=== PATIENT | female | born 1955 | race Caucasian/White ===

== ENCOUNTER 2023-12-19 05:00 | Emergency (ER) | payer MEDICARE, OTHER, SELFPAY ==
[2023-12-19 05:03] VITALS: BP 152/96
[2023-12-19 05:23] VITALS: BMI 24.3
[2023-12-19 05:55] LABS: % Basophils 0.6 % (0-2); % Eosinophils 2.8 % (0-6); % Immature Granulocytes 0.2 % (0-0.5); % Lymphocytes 25.6 % (20.5-51.1); % Neutrophils 67.8 % (42.2-75.2); Absolute Eosinophils 0.1 10^3/uL (0-0.7); Absolute Lymphocytes 1.2 10^3/uL (1.2-3.4); Absolute Monocytes 0.1 10^3/uL (0.1-0.6); Absolute Neutrophils 3.1 10^3/uL (1.4-6.5); Hematocrit 41.7 % (37.0-47.0); Hemoglobin 15.1 g/dL (12.0-16.0); Mean Corp Hgb Conc. 36.2 g/dL (33.0-37.0); Mean Corpuscular Hgb 31.5 pg (27.0-31.0); Mean Corpuscular Volume 87.1 fL (81.0-99.0); Mean Platelet Volume 9.8 fL (7.4-10.4); Nucleated Red Blood Cells % 0 %; Platelet Count 177 10^3/uL (130-400); Red Blood Cell Count 4.79 10^6/uL (4.20-5.40); Red Cell Dist. Width 11.7 % (11.5-14.5); White Blood Cell Count 4.6 10^3/uL (4.8-10.8)
[2023-12-19 06:00] VITALS: BP 135/64
[2023-12-19 06:08] LABS: ALT (SGPT) 30 U/L (0-35); AST (SGOT) 31 U/L (14-36); Albumin 4.2 g/dl (3.5-5.0); Alkaline Phosphatase 98 U/L (38-126); Blood Urea Nitrogen 17 mg/dl (7-17); Calcium 9.2 mg/dl (8.4-10.2); Carbon Dioxide 26 mmol/L (22-30); Chloride 103 mmol/L (98-107); Estimated Creatinine Clearance 40 ml/min; Glucose 87 mg/dl (70-99); Potassium 3.3 mmol/L (3.5-5.1); Sodium 140 mmol/L (135-145); Total Protein 6.4 g/dl (6.3-8.2); eGFR > 60.00
[2023-12-19 06:19] LABS: NT-proBNP 273 pg/ml; Troponin I < 0.012 ng/ml
[2023-12-19 07:16] VITALS: BP 124/52
--- NOTE | 2023-12-19 07:29 | ED.GENMED ---
History of Present Illness
General
Chief Complaint: Breathing Problem
Source: patient and spouse
Exam Limitations: none
Time Seen by Provider: 12/19/23 06:04
Nursing documentation reviewed up to this point in time: agreed with
Travel History
Have you had any contact with someone who has COVID-19?: No
Do you have any symptoms of coronavirus? Fever > 100 degrees, chills, cough, shortness of breath, sore throat, loss of taste or smell, muscle aches, or headache?: No
History of Present Illness
History of Present Illness:
68-year-old female with a past medical history of hypertension who presents to the emergency department for evaluation of abdominal pain associated with nausea, vomiting, diarrhea; she also had an episode of chest/scapular pain this morning which
seems to have resolved. Patient reports that she started feeling unwell on he reports that she had 'queasy' feeling and some vague abdominal discomfort. She says that she woke up morning feeling a bit better and she thought
that perhaps it was minor illness but Tuesday symptoms returned and she has had essentially constant symptoms since then. She said she did have an episode of vomiting associate with this queasiness. She says that last night she was at her
daughter's house for Mother's Day and had to leave early because she was having abdominal discomfort. She says that when she got home she started to have profuse nonbloody diarrhea. In the middle night last night she says she woke up with some mid
back pain associate with some shortness of breath�this lasted for few hours until arrival to the emergency room. She says that this symptom has resolved. She has not had any fevers or chills. She denies any other complaints. She has a prior
history of a but no other abdominal surgeries she says.
Review of Systems
Review of Systems
All Other Systems: ROS reviewed and negative except as documented in HPI and ROS
Constitutional: Denies fever or chills
EENT: Denies sore throat or runny nose
Respiratory: Reports trouble breathing; Denies cough
Cardiac: Reports chest pain; Denies palpitations
ABD/GI: Reports abdominal pain, nausea, vomiting and diarrhea; Denies bloody stools
: Denies flank pain
Musculoskeletal: Reports back pain; Denies neck pain
Neurological: Denies headache
Phy Exam
Physical Exam
Physical Exam:
General: Awake, alert, oriented x3; no acute distress
Head: Normocephalic, atraumatic
Eyes: Conjunctiva normal, sclera anicteric
Throat: Airway intact, handling secretions
Neck: Trachea midline, supple without meningismus
Lungs: Clear to auscultation bilaterally, no wheezing, rales, rhonchi
Heart: Regular rate and rhythm, no murmurs, gallops, or rubs
Abd: Soft, non distended, tender to palpation in the epigastrium with some voluntary guarding
Neuro: Cranial nerves grossly intact, speech fluid
Skin: no rash
Extremities: No edema in extremities, equal pulses in all extremities
Scores
Heart Failure Risk
Heart Failure Risk Score: Not Applicable
Heart Score for Chest Pain Patients
STEMI patient?: Not applicable
Withdrawal Assessment of Alcohol
Withdrawal Assessment Completed?: Not applicable
Course
Orders/Labs/Results
Orders:
Orders
12/19/23 05:24
Electrocardiogram (*1) Urgent
Reason for Study: Other
Other Reason for Exam: Respiratory Distress
Cardiac Monitoring- Treatment ONCE
EKG- Treatment ONCE
IV Insert/Care/Rem.- Treatment PRN
CR Chest - 2 Views Urgent
Comment:
Reason For Exam: respiratory distress
O2 Therapy [RESP] Urgent
Titrate/Wean O2 to maintain O2 sat greater than (%): 93
Special Instructions: TO MAINTAIN CONTINUOUS O2 SATS >/= 93%
Pulse Ox/cont/shift [RESP] Urgent
Quantity: 1
Special Instructions: continuous pulse ox
12/19/23 05:46
Complete Blood Count/With Diff Urgent
Comprehensive Metabolic Panel Urgent
Lipase Urgent
Comment: ADD ON
NT-proBNP Urgent
Troponin I Urgent
12/19/23 06:10
STOOL [C difficile Antigen & Toxins] Urgent
[facility] Source: Feces/Stool
Specimen Description:
Stool Culture Urgent
KV[facility] Source: Feces/Stool
Specimen Description:
12/19/23 07:19
COVID-19 Antigen Urgent
Source: Nasal Swab
Influenza A+B Rapid Molecular Urgent
KV[facility] Source: Nasal Swab
Specimen Description:
12/19/23 07:41
Add On- LAB Urgent
Tests Added?: lipase
CT Abd/pelvis W Iv Cont Urgent
Comment:
Reason For Exam: upper abd pain, tenderness (epigastrum), N/V/D
Potassium Chloride [KCl] 40 meq PO NOW STA
12/19/23 07:50
Troponin I Urgent
12/19/23 07:56
Potassium Chloride [KCl] 20 meq 0.9% Sodium Chloride 250 ml [Nss] 250 ml IV NOW
Abnormal Lab Results
12/19/23
05:46
WBC 4.6 L 10^3/uL
(4.8-10.8)
MCH 31.5 H pg
(27.0-31.0)
Potassium 3.3 L mmol/L
(3.5-5.1)
12/19/23 05:46
12/19/23 05:46
Vital Signs
Initial and Last Documented VS:
Initial Vital Signs
Temp Pulse Resp BP Pulse Ox
36.6 C 94 22 152/96 100
12/19/23 05:03 12/19/23 05:03 12/19/23 05:03 12/19/23 05:03 12/19/23 05:03
Last Documented Vital Signs
Temp Pulse Resp BP Pulse Ox
36.6 C 66 12 124/52 98
12/19/23 05:03 12/19/23 07:16 12/19/23 06:30 12/19/23 07:16 12/19/23 07:16
MDM/Problems Addressed
Differential Diagnosis Includes:
Gastritis, enteritis, cholecystitis, cholelithiasis, colitis, pancreatitis, pneumonia
MDM/Problems Addressed:
68-year-old female presents to the emergency room for evaluation of abdominal discomfort associate with nausea, vomiting, diarrhea over the past few days. Also had an episode of mid back/chest discomfort associate with shortness of breath last
night that resolved. Hypertensive but otherwise normal vitals. Physical exam as above. Plan to check labs including CBC and CMP, lipase. Will check troponins. Will check swabs for COVID and flu. Check chest x-ray. Will send for a CT of the
abdomen pelvis. Will monitor closely reassess after the above.
Labs reviewed: CBC shows no clinically significant normalities, CMP shows hypokalemia to 3.3 which will be repleted. Lipase normal. Initial troponin undetectable will send repeat. Chest x-ray reviewed by me shows no acute disease. Awaiting
results of CT.
Repeat troponin undetectable. CT of the abdomen pelvis shows some mucosal hyperenhancement at the gastroesophageal junction consistent with an acute gastritis. Certainly this could account for her chest/back discomfort and nausea/vomiting diarrhea
slightly atypical. No other signs of acute pathology on CT. Will plan to start on PPI. Will refer to gastroenterology for follow-up. No clear indication for admission at this point in time, discharged with outpatient referral. Patient
comfortable with this plan. Spoke about return precautions all questions answered.
Acute Exacerbation and/or Progression of Chronic Illness:
Acutely hypertensive resolved without intervention continue to monitor but no additional antihypertensive indicated at present
Acute Exacerbation and/or Progression of Chronic Illness: HTN
*Radiology
Radiology exam reviewed: preliminary read by ED provider and radiology read reviewed
*Pulse Oximetry
Patient hypoxic: no
*EKG
Interpreted by ED Provider?: Yes
Heart Rate: 67
Rate: normal
Rhythm: sinus
Atkins: normal axis
Interval: normal interval
QRS Pattern: normal QRS
Ischemia: non-specific ST changes
*Critical Care Note
Total Time (30-74mins, 75-104mins- exclusive of procedures): Not Applicable
Data Reviewed
Source: patient and spouse
ED Attending Note
-
Portions of this chart may have been created with voice recognition software.� Occasional wrong word or��sound alike� substitutions may have occurred due to the inherent limitations of voice recognition software.
Discharge Plan
Departure
Patient Disposition: Home (Routine Discharge)
Date of Disposition: 12/19/23
Time of Disposition: 08:36
Patient with high blood pressure during this ER visit?: Yes
Discharge Problem:
Gastritis, Diarrhea
Instructions: [place] Diet, Gastritis ED
Prescriptions:
New
pantoprazole 40 mg tablet,delayed release (DR/EC)
40 mg PO DAILY Qty: 30 0RF
sucralfate [Carafate] 100 mg/mL suspension
10 ml PO ACHS Qty: 1000 0RF
No Action
Flonase
1 spray intranasal DAILY PRN (Reason: allergy)
atenolol
25 mg PO DAILY
melatonin
3 mg PO HS PRN (Reason: sleep)
Referrals:
Chandler Stokes MD [Active] - Call in 1-3 days for appt (GI doctor)
Albreto Farley MD [Family Provider] - Follow up in 5-7 days
Activity Restrictions/Additional Instructions:
Thank you for visiting the Emergency Department at [facility].
1. Please schedule a follow up appointment as directed. Call first thing tomorrow morning to make an appointment.
2. If indicated, please take your medications as instructed and indicated on discharge paperwork.
3. If any of your symptoms do not improve, or persist, or become more severe within 6-12 hours, please return to the emergency department for further care.
4. Please return to the emergency department if you develop a headache, neck pain/stiffness, fever greater than 100.4F, chest pain, shortness of breath, persistent nausea, vomiting, slurred speech, difficulty walking, numbness/tingling, weakness,
signs of infection or any other symptoms that are worrisome to you.
Please call [phone] if you have any questions.
Interventions
Interventions:
*Risk Screen - Suicide Last Done: 12/19/23 05:03
*General Assessment Last Done: 12/19/23 05:57
*Neglect/Abuse Screening Last Done: 12/19/23 05:03
ED- Fall Risk Assessment Last Done: 12/19/23 05:57
*ED COVID-19 Vaccine History Last Done: 12/19/23 05:56
[place]-Rsom[facility]-Lrvnnzmfdw Assessment Last Done: 12/19/23 07:20
ED- Cardiac Assessment Last Done: 12/19/23 07:21
ED-EENT Assessment Last Done: 12/19/23 05:57
ED- Pulmonary Assessment Last Done: 12/19/23 05:57
Discharge Date and Time
Print Language: INDONESIAN
[2023-12-19 07:39] LABS: COVID-19 Antigen Negative (Negative)
[2023-12-19 08:15] LABS: Lipase 90 U/L (23-300)
[2023-12-19] MEDS: KCL 260 MEQ IV (08:21)
[2023-12-19 08:24] LABS: Troponin I < 0.012 ng/ml
[2023-12-19 09:22] VITALS: BP 116/68
[2023-12-19 10:00] VITALS: BP 111/55
[2023-12-19] MEDS: PROTONIX IV 40 MG IV (10:44)
== END 2023-12-19 11:10 | disposition home or self-care (01) ==
LOC: EMR 05:00
PROVIDERS: Emergency Medicine; EMERGENCY PHYSICIAN Emergency Medicine; FAMILY PHYSICIAN Internal Medicine
DX: R19.7 Diarrhea, unspecified (principal); K29.70 Gastritis, unspecified, without bleeding; I10 Essential (primary) hypertension
CPT/HCPCS: 99285; 96365; 96366; 96375; 71046; 74177; 80053; 83690; 83880; 84484; 85025; 87502; 87811; 93005; Q9967

== ENCOUNTER → 2024-02-23 06:20 | Day surgery (SDC) | payer MEDICARE, OTHER, SELFPAY | LOC: GI 06:20 | PROVIDERS: ATTENDING PHYSICIAN Internal Medicine | DX: K30 Functional dyspepsia (principal); K44.9 Diaphragmatic hernia without obstruction or gangrene; K57.10 Diverticulosis of small intestine without perforation or abscess without bleeding; K31.89 Other diseases of stomach and duodenum; K31.7 Polyp of stomach and duodenum; R11.2 Nausea with vomiting, unspecified | CPT/HCPCS: 43239; 88305; 88342 ==

== ENCOUNTER → 2024-05-16 07:23 | Outpatient (REF) | payer MEDICARE, OTHER, SELFPAY | LOC: MRI 3T 07:23 | PROVIDERS: ATTENDING PHYSICIAN Emergency Medicine Sports Medicine; FAMILY PHYSICIAN Internal Medicine | DX: M70.62 Trochanteric bursitis, left hip (principal) | CPT/HCPCS: 72148 ==

== ENCOUNTER 2025-03-07 06:18 | Day surgery (SDC) | payer MEDICARE, OTHER, SELFPAY | END 2025-03-07 08:51 | disposition home or self-care (01) | LOC: GI 06:18 | PROVIDERS: ATTENDING PHYSICIAN Internal Medicine | DX: Z12.11 Encounter for screening for malignant neoplasm of colon (principal); K57.30 Diverticulosis of large intestine without perforation or abscess without bleeding; K63.89 Other specified diseases of intestine; K64.8 Other hemorrhoids | CPT/HCPCS: 45380; 88305 ==